=== PATIENT | female | born 1975 | race Hispanic/Latino ===

== ENCOUNTER 2021-02-14 11:03 | Inpatient (IN) | payer BC ==
[~2021-02-14] VITALS: Ht 13.2 cm; Wt 78.9 kg
[2021-02-14] MEDS: DEXTROSE 5%/0.45% SOD CHL 1,000 ML IV SCH ×2 (00:21→13:42)
[2021-02-14] MEDS ORDERED: HYDROMORPHONE 1MG/1ML INJ IV PRN (12:00)
[2021-02-14 12:39] VITALS: BP 109/66
[2021-02-14 12:41] VITALS: BP 109/66
[2021-02-14 12:43] LABS: BASOPHILS % 0.1 % (0.0-1.0); EOSINOPHILS % 0.2 % (0.0-6.0); HEMATOCRIT 41.1 % (34.2-44.1); LYMPHOCYTES # (AUTO) 2.5 (1.0-3.2); LYMPHOCYTES % 29.8 % (18.0-39.1); MEAN CORPUSCULAR HEMOGLOBIN 26.7 pg (28-32); MEAN CORPUSCULAR HGB CONC 31.6 g/dL (31-35); MEAN CORPUSCULAR VOLUME 84.6 fL (81-99); MONOCYTES # (AUTO) 0.3 (0.2-0.8); MONOCYTES % 3.7 % (4.4-11.3); NEUTROPHILS # (AUTO) 5.5 (2.1-6.9); PLATELET COUNT 407 x10e3/uL (140-360); RED BLOOD COUNT 4.86 x10e6/uL (3.6-5.1); RED CELL DISTRIBUTION WIDTH 15.8 % (11.7-14.4)
[2021-02-14 12:59] VITALS: BP 109/66
[2021-02-14 13:05] LABS: ALBUMIN 3.7 g/dL (3.5-5.0); ALBUMIN/GLOBULIN RATIO 0.9 (0.8-2.0); ANION GAP 16.6 mmol/L (8-16); CALCIUM 8.9 mg/dL (8.4-10.2); CREATININE, SERUM 0.75 mg/dL (0.57-1.11); POTASSIUM 3.6 mmol/L (3.5-5.1)
[2021-02-14] MEDS: METRONIDAZOLE 500MG/NS 100ML 100 ML IV SCH ×2 (13:42→20:29)
[2021-02-14] MEDS: PIPERACILLIN/TAZOBACTAM 3.375 GM in SODIUM CHLORIDE 0.9% 50ML 50 ML IV SCH ×2 (13:42→18:24)
[2021-02-14] MEDS: ONDANSETRON HCL INJ 2MG/ML 2ML 2 MG/ML VIAL IV PRN (13:43)
[2021-02-14] MEDS ORDERED: SEVOFLURANE INHAL SOLN 250 ML PEN BTL ONE (14:03)
[2021-02-14] MEDS ORDERED: ONDANSETRON HCL INJ 2MG/ML 2ML 2 MG/ML VIAL ONE (14:03)
[2021-02-14] MEDS ORDERED: DEXAMETHASONE SOD PHOS INJ 4 MG/ML VIAL ONE (14:03)
[2021-02-14] MEDS ORDERED: PROPOFOL IV EMULSION 10 MG/ML 20 ML VIAL ONE (14:03)
[2021-02-14] MEDS ORDERED: KETOROLAC TROMETHAMINE 30 MG/ML VIAL ONE (14:03)
[2021-02-14] MEDS ORDERED: POVIDONE IODINE 0.05% 0.05 % ML PO ONE (14:03)
[2021-02-14 15:32] VITALS: BP 131/76
[2021-02-14 20:00] VITALS: BP 138/85
[2021-02-14] MEDS: HYDROMORPHONE 1MG/1ML INJ IV PRN (21:31)
[2021-02-15] VITALS (11 sets, daily range): BP systolic 109–127; BP diastolic 70–96
[2021-02-15] MEDS: PIPERACILLIN/TAZOBACTAM 3.375 GM in SODIUM CHLORIDE 0.9% 50ML 50 ML IV SCH ×4 (00:52→18:23)
[2021-02-15] MEDS: HYDROMORPHONE 1MG/1ML INJ IV PRN ×5 (01:55→20:22)
[2021-02-15] MEDS: ONDANSETRON HCL INJ 2MG/ML 2ML 2 MG/ML VIAL IV PRN ×2 (01:55→08:54)
[2021-02-15] MEDS: METRONIDAZOLE 500MG/NS 100ML 100 ML IV SCH ×3 (05:09→21:13)
[2021-02-15] MEDS: DOCUSATE SODIUM LIQD 100 MG/10 ML UDC NG SCH (18:23)
[2021-02-16] VITALS (7 sets, daily range): BP systolic 101–136; BP diastolic 62–81
[2021-02-16] MEDS: PIPERACILLIN/TAZOBACTAM 3.375 GM in SODIUM CHLORIDE 0.9% 50ML 50 ML IV SCH ×4 (00:51→18:05)
[2021-02-16] MEDS: HYDROMORPHONE 1MG/1ML INJ IV PRN ×7 (00:51→21:18)
[2021-02-16] MEDS: METRONIDAZOLE 500MG/NS 100ML 100 ML IV SCH ×3 (05:44→21:18)
[2021-02-16] MEDS: DOCUSATE SODIUM LIQD 100 MG/10 ML UDC NG SCH ×2 (08:50→18:05)
[2021-02-16] MEDS: DEXTROSE 5%/0.45% SOD CHL 1,000 ML IV SCH ×3 (10:00→23:14)
[2021-02-16] MEDS: ONDANSETRON HCL INJ 2MG/ML 2ML 2 MG/ML VIAL IV PRN ×2 (12:12→21:18)
[2021-02-17] VITALS (8 sets, daily range): BP systolic 98–121; BP diastolic 60–81
[2021-02-17] MEDS: PIPERACILLIN/TAZOBACTAM 3.375 GM in SODIUM CHLORIDE 0.9% 50ML 50 ML IV SCH ×5 (00:10→23:50)
[2021-02-17] MEDS: HYDROMORPHONE 1MG/1ML INJ IV PRN ×8 (00:25→22:20)
[2021-02-17] MEDS: METRONIDAZOLE 500MG/NS 100ML 100 ML IV SCH ×3 (06:15→21:18)
[2021-02-17] MEDS ORDERED: DIATRIZOATE MEGL/DIATRIZOA SOD 120 ML BTL PO ONE (08:51)
[2021-02-17] MEDS: DOCUSATE SODIUM LIQD 100 MG/10 ML UDC NG SCH (09:00)
[2021-02-17] MEDS: DEXTROSE 5%/0.45% SOD CHL 1,000 ML IV SCH ×2 (09:57→19:58)
[2021-02-17] MEDS: KETOROLAC TROMETHAMINE 30 MG/ML VIAL IV SCH ×3 (11:40→23:50)
[2021-02-17] MEDS: DOCUSATE SODIUM 100 MG CAP PO SCH (17:00)
[2021-02-18] VITALS (8 sets, daily range): BP systolic 105–131; BP diastolic 65–82
[2021-02-18] MEDS: KETOROLAC TROMETHAMINE 30 MG/ML VIAL IV SCH ×3 (05:22→18:33)
[2021-02-18] MEDS: PIPERACILLIN/TAZOBACTAM 3.375 GM in SODIUM CHLORIDE 0.9% 50ML 50 ML IV SCH ×3 (05:22→18:00)
[2021-02-18] MEDS: METRONIDAZOLE 500MG/NS 100ML 100 ML IV SCH ×3 (06:00→21:39)
[2021-02-18] MEDS: ONDANSETRON HCL INJ 2MG/ML 2ML 2 MG/ML VIAL IV PRN ×2 (08:17→13:41)
[2021-02-18] MEDS: HYDROMORPHONE 1MG/1ML INJ IV PRN ×4 (08:17→21:38)
[2021-02-18] MEDS: GABAPENTIN 300 MG CAP PO SCH ×3 (08:29→20:44)
[2021-02-18] MEDS: DOCUSATE SODIUM 100 MG CAP PO SCH ×2 (08:29→16:36)
[2021-02-18] MEDS: DEXTROSE 5%/0.45% SOD CHL 1,000 ML IV SCH ×2 (08:30→16:20)
[2021-02-18] MEDS ORDERED: GADOBENATE DIMEGLUMINE 1 ML IV ONE (10:10)
[2021-02-19] VITALS (8 sets, daily range): BP systolic 118–134; BP diastolic 77–87
[2021-02-19] MEDS: DEXTROSE 5%/0.45% SOD CHL 1,000 ML IV SCH ×3 (04:59→18:23)
[2021-02-19] MEDS: METRONIDAZOLE 500MG/NS 100ML 100 ML IV SCH ×3 (05:00→22:44)
[2021-02-19] MEDS: KETOROLAC TROMETHAMINE 30 MG/ML VIAL IV SCH ×4 (05:50→18:22)
[2021-02-19] MEDS: PIPERACILLIN/TAZOBACTAM 3.375 GM in SODIUM CHLORIDE 0.9% 50ML 50 ML IV SCH ×5 (05:50→17:30)
[2021-02-19] MEDS: GABAPENTIN 300 MG CAP PO SCH ×3 (08:25→21:04)
[2021-02-19] MEDS: DOCUSATE SODIUM 100 MG CAP PO SCH ×2 (08:25→17:30)
[2021-02-19] MEDS: HYDROMORPHONE 1MG/1ML INJ IV PRN ×5 (08:25→21:00)
[2021-02-19] MEDS: HYDROCODONE/APAP 10MG-325MG TAB PO PRN (16:30)
[2021-02-20] VITALS (8 sets, daily range): BP systolic 106–141; BP diastolic 71–97
[2021-02-20] MEDS: PIPERACILLIN/TAZOBACTAM 3.375 GM in SODIUM CHLORIDE 0.9% 50ML 50 ML IV SCH ×5 (01:25→23:27)
[2021-02-20] MEDS: HYDROMORPHONE 1MG/1ML INJ IV PRN ×6 (03:30→22:43)
[2021-02-20] MEDS: METRONIDAZOLE 500MG/NS 100ML 100 ML IV SCH ×3 (06:00→21:34)
[2021-02-20] MEDS: KETOROLAC TROMETHAMINE 30 MG/ML VIAL IV SCH ×2 (06:00)
[2021-02-20] MEDS: DEXTROSE 5%/0.45% SOD CHL 1,000 ML IV SCH ×2 (06:18→18:00)
[2021-02-20] MEDS: GABAPENTIN 300 MG CAP PO SCH ×3 (09:00→20:26)
[2021-02-20] MEDS: DOCUSATE SODIUM 100 MG CAP PO SCH ×2 (09:00→17:27)
[2021-02-20 12:08] LABS: CLARITY,URINE CLEAR (CLEAR); COLOR,URINE YELLOW (YELLOW); KETONES,URINE NEGATIVE (NEGATIVE); LEUKOCYTE ESTERASE ,URINE NEGATIVE (NEGATIVE); NITRITE,URINE NEGATIVE (NEGATIVE); PROTEIN,URINE DIPSTICK NEGATIVE (NEGATIVE); URINE UROBILINOGEN 0.2 mg/dL (0.2 - 1)
[2021-02-20 12:25] LABS: RBC,URINE 0-5 /HPF (0-5); WBC,URINE (MAN) 0-5 /HPF (0-5)
[2021-02-20] MEDS: HYDROCODONE/APAP 10MG-325MG TAB PO PRN ×2 (13:49→20:26)
[2021-02-20] MEDS: ONDANSETRON HCL INJ 2MG/ML 2ML 2 MG/ML VIAL IV PRN (22:43)
[2021-02-21] VITALS (8 sets, daily range): BP systolic 115–139; BP diastolic 78–94
[2021-02-21] MEDS: HYDROCODONE/APAP 10MG-325MG TAB PO PRN ×3 (02:00→19:40)
[2021-02-21] MEDS: DEXTROSE 5%/0.45% SOD CHL 1,000 ML IV SCH ×2 (03:00→15:01)
[2021-02-21] MEDS: HYDROMORPHONE 1MG/1ML INJ IV PRN ×3 (03:45→21:53)
[2021-02-21] MEDS: PIPERACILLIN/TAZOBACTAM 3.375 GM in SODIUM CHLORIDE 0.9% 50ML 50 ML IV SCH ×3 (05:16→18:08)
[2021-02-21] MEDS: METRONIDAZOLE 500MG/NS 100ML 100 ML IV SCH (06:16)
[2021-02-21 07:27] LABS: HEMATOCRIT 37.2 % (34.2-44.1); HEMOGLOBIN 12.1 g/dL (12.0-16.0); MEAN CORPUSCULAR HEMOGLOBIN 26.7 pg (28-32); MEAN CORPUSCULAR HGB CONC 32.5 g/dL (31-35); MEAN CORPUSCULAR VOLUME 82.1 fL (81-99); PLATELET COUNT 347 x10e3/uL (140-360); RED BLOOD COUNT 4.53 x10e6/uL (3.6-5.1); RED CELL DISTRIBUTION WIDTH 15.3 % (11.7-14.4)
[2021-02-21 09:01] LABS: BAND NEUTROPHILS % (MANUAL) 1 %; LYMPHOCYTES % (MANUAL) 22 % (19-48); MONOCYTES % (MANUAL) 4 % (3.4-9.0); NEUTROPHILS % (MANUAL) 67 % (40-74)
[2021-02-21 09:02] LABS: PLATELET ESTIMATE ADEQUATE; PLATELET MORPHOLOGY COMMENT NORMAL; RBC MORPHOLOGY COMMENT NORMAL
[2021-02-21] MEDS ORDERED: IOPAMIDOL 370 MG/ML 200 ML INFUS..BTL INJ ONE (10:55)
[2021-02-21] MEDS ORDERED: SODIUM CHLORIDE 0.9% 50ML 50 ML ONE (10:55)
[2021-02-21] MEDS: DOCUSATE SODIUM 100 MG CAP PO SCH ×2 (11:09→18:07)
[2021-02-21] MEDS: GABAPENTIN 300 MG CAP PO SCH ×3 (11:09→21:51)
[2021-02-21] MEDS: Vancomycin IV 1 GM in SODIUM CHLORIDE 0.9% 250ML 250 ML IV SCH (15:00)
[2021-02-22] VITALS (8 sets, daily range): BP systolic 101–137; BP diastolic 70–77
[2021-02-22] MEDS ORDERED: ACETAMINOPHEN 325 MG TAB PO PRN (01:00)
[2021-02-22] MEDS ORDERED: ACETAMINOPHEN 325 MG TAB ONE (01:18)
[2021-02-22] MEDS: Vancomycin IV 1 GM in SODIUM CHLORIDE 0.9% 250ML 250 ML IV SCH ×2 (01:45→13:21)
[2021-02-22] MEDS: HYDROMORPHONE 1MG/1ML INJ IV PRN ×4 (01:47→12:08)
[2021-02-22] MEDS: ONDANSETRON HCL INJ 2MG/ML 2ML 2 MG/ML VIAL IV PRN (01:47)
[2021-02-22] MEDS: PIPERACILLIN/TAZOBACTAM 3.375 GM in SODIUM CHLORIDE 0.9% 50ML 50 ML IV SCH ×5 (06:43→18:40)
[2021-02-22] MEDS: DOCUSATE SODIUM 100 MG CAP PO SCH ×2 (09:00→18:40)
[2021-02-22] MEDS: GABAPENTIN 300 MG CAP PO SCH ×3 (09:00→20:58)
[2021-02-22] MEDS: DEXTROSE 5%/0.45% SOD CHL 1,000 ML IV SCH ×2 (10:00)
[2021-02-22] MEDS ORDERED: LIDOCAINE 1% W/EPINEPHRINE 20 ML VIAL ONE (13:21)
[2021-02-22] MEDS ORDERED: LIDOCAINE HCL 1% LOCAL INJ 20 ML VIAL ONE (13:21)
[2021-02-22] MEDS ORDERED: ONDANSETRON HCL INJ 2MG/ML 2ML 2 MG/ML VIAL IV PRN (14:15)
[2021-02-22] MEDS: SODIUM CHLORIDE 0.9% 1000ML 1,000 ML IV SCH (16:54)
[2021-02-23] VITALS (10 sets, daily range): BP systolic 107–141; BP diastolic 69–85
[2021-02-23] MEDS: SODIUM CHLORIDE 0.9% 1000ML 1,000 ML IV SCH ×3 (00:15→22:42)
[2021-02-23] MEDS: HYDROMORPHONE 1MG/1ML INJ IV PRN ×5 (01:55→20:10)
[2021-02-23] MEDS: Vancomycin IV 1 GM in SODIUM CHLORIDE 0.9% 250ML 250 ML IV SCH (01:55)
[2021-02-23] MEDS: PIPERACILLIN/TAZOBACTAM 3.375 GM in SODIUM CHLORIDE 0.9% 50ML 50 ML IV SCH ×5 (05:58→18:05)
[2021-02-23 06:25] LABS: BASOPHILS % 0.1 % (0.0-1.0); HEMATOCRIT 34.1 % (34.2-44.1); HEMOGLOBIN 11.2 g/dL (12.0-16.0); LYMPHOCYTES # (AUTO) 1.9 (1.0-3.2); LYMPHOCYTES % 12.4 % (18.0-39.1); MEAN CORPUSCULAR HEMOGLOBIN 26.9 pg (28-32); MEAN CORPUSCULAR HGB CONC 32.8 g/dL (31-35); MEAN CORPUSCULAR VOLUME 81.8 fL (81-99); MONOCYTES % 6.5 % (4.4-11.3); NEUTROPHILS # (AUTO) 12.2 (2.1-6.9); NEUTROPHILS % 80.4 % (38.7-80.0); PLATELET COUNT 411 x10e3/uL (140-360); RED BLOOD COUNT 4.17 x10e6/uL (3.6-5.1); RED CELL DISTRIBUTION WIDTH 15.3 % (11.7-14.4)
[2021-02-23] MEDS: FLUCONAZOLE 400MG/200ML BAG 200 ML IV SCH (06:41)
[2021-02-23] MEDS ORDERED: Vancomycin IV 1 GM VIAL ONE (09:09)
[2021-02-23] MEDS: DOCUSATE SODIUM 100 MG CAP PO SCH ×2 (09:30→16:23)
[2021-02-23] MEDS: GABAPENTIN 300 MG CAP PO SCH ×3 (09:30→20:10)
[2021-02-23] MEDS: HYDROCODONE/APAP 10MG-325MG TAB PO PRN ×4 (09:31→22:42)
[2021-02-23] MEDS: Vancomycin IV 1.5 GM in SODIUM CHLORIDE 0.9% 250ML 300 ML IV SCH (13:39)
[2021-02-24] VITALS: BP 113/84
[2021-02-24] MEDS: Vancomycin IV 1.5 GM in SODIUM CHLORIDE 0.9% 250ML 300 ML IV SCH ×2 (01:30→13:42)
[2021-02-24] MEDS: HYDROMORPHONE 1MG/1ML INJ IV PRN ×5 (03:15→20:07)
[2021-02-24 04:00] VITALS: BP 112/77
[2021-02-24 04:44] LABS: HEMATOCRIT 30.4 % (34.2-44.1); HEMOGLOBIN 9.9 g/dL (12.0-16.0); MEAN CORPUSCULAR HGB CONC 32.6 g/dL (31-35); MEAN CORPUSCULAR VOLUME 82.8 fL (81-99); PLATELET COUNT 378 x10e3/uL (140-360); RED BLOOD COUNT 3.67 x10e6/uL (3.6-5.1); RED CELL DISTRIBUTION WIDTH 15.7 % (11.7-14.4)
[2021-02-24] MEDS: PIPERACILLIN/TAZOBACTAM 3.375 GM in SODIUM CHLORIDE 0.9% 50ML 50 ML IV SCH ×3 (05:30)
[2021-02-24] MEDS: SODIUM CHLORIDE 0.9% 1000ML 1,000 ML IV SCH ×2 (06:15→16:01)
[2021-02-24] MEDS: FLUCONAZOLE 400MG/200ML BAG 200 ML IV SCH (06:26)
[2021-02-24 06:48] LABS: LYMPHOCYTES % (MANUAL) 29 % (19-48); MONOCYTES % (MANUAL) 4 % (3.4-9.0); NEUTROPHILS % (MANUAL) 64 % (40-74); PLATELET ESTIMATE ADEQUATE; PLATELET MORPHOLOGY COMMENT NORMAL; RBC MORPHOLOGY COMMENT NORMAL
[2021-02-24 08:13] VITALS: BP 115/85
[2021-02-24] MEDS: DOCUSATE SODIUM 100 MG CAP PO SCH ×2 (09:00→16:02)
[2021-02-24] MEDS: GABAPENTIN 300 MG CAP PO SCH ×3 (09:41→20:07)
[2021-02-24 11:55] VITALS: BP 129/74
[2021-02-24 20:07] VITALS: BP 130/81
[2021-02-24 20:15] VITALS: BP 130/81
[2021-02-24] MEDS: HYDROCODONE/APAP 10MG-325MG TAB PO PRN (22:59)
[2021-02-25] VITALS (11 sets, daily range): BP systolic 117–144; BP diastolic 70–88
[2021-02-25] MEDS: Vancomycin IV 1.5 GM in SODIUM CHLORIDE 0.9% 250ML 300 ML IV SCH ×2 (02:06→13:30)
[2021-02-25] MEDS: SODIUM CHLORIDE 0.9% 1000ML 1,000 ML IV SCH ×2 (04:03→13:07)
[2021-02-25] MEDS: HYDROMORPHONE 1MG/1ML INJ IV PRN ×5 (04:04→22:09)
[2021-02-25] MEDS: FLUCONAZOLE 400MG/200ML BAG 200 ML IV SCH (05:54)
[2021-02-25] MEDS: GABAPENTIN 300 MG CAP PO SCH ×3 (08:51→21:27)
[2021-02-25] MEDS: DOCUSATE SODIUM 100 MG CAP PO SCH ×2 (08:51→15:06)
[2021-02-25] MEDS: HYDROCODONE/APAP 10MG-325MG TAB PO PRN ×3 (09:00→23:20)
[2021-02-26] VITALS (8 sets, daily range): BP systolic 130–140; BP diastolic 78–89
[2021-02-26] MEDS: SODIUM CHLORIDE 0.9% 1000ML 1,000 ML IV SCH ×3 (01:15→16:54)
[2021-02-26] MEDS: Vancomycin IV 1.5 GM in SODIUM CHLORIDE 0.9% 250ML 300 ML IV SCH ×2 (01:30→21:25)
[2021-02-26] MEDS: HYDROMORPHONE 1MG/1ML INJ IV PRN ×4 (01:47→18:32)
[2021-02-26] MEDS: HYDROCODONE/APAP 10MG-325MG TAB PO PRN ×2 (04:15→09:44)
[2021-02-26] MEDS: FLUCONAZOLE 400MG/200ML BAG 200 ML IV SCH (05:29)
[2021-02-26] MEDS: DOCUSATE SODIUM 100 MG CAP PO SCH ×2 (09:00→16:31)
[2021-02-26] MEDS: GABAPENTIN 300 MG CAP PO SCH ×3 (09:43→21:25)
[2021-02-27] VITALS (8 sets, daily range): BP systolic 122–148; BP diastolic 73–92
[2021-02-27] MEDS: SODIUM CHLORIDE 0.9% 1000ML 1,000 ML IV SCH ×2 (03:59→14:53)
[2021-02-27] MEDS: HYDROMORPHONE 1MG/1ML INJ IV PRN ×6 (03:59→22:10)
[2021-02-27] MEDS: HYDROCODONE/APAP 10MG-325MG TAB PO PRN ×2 (09:11→16:50)
[2021-02-27] MEDS: Vancomycin IV 1.5 GM in SODIUM CHLORIDE 0.9% 250ML 300 ML IV SCH ×2 (09:25→22:31)
[2021-02-27] MEDS: DOCUSATE SODIUM 100 MG CAP PO SCH ×2 (09:25→17:01)
[2021-02-27] MEDS: GABAPENTIN 300 MG CAP PO SCH ×3 (09:25→22:31)
[2021-02-27] MEDS ORDERED: FLUCONAZOLE 400MG/200ML BAG 200 ML IV SCH (13:00)
[2021-02-28 00:13] VITALS: BP 140/71
[2021-02-28] MEDS: SODIUM CHLORIDE 0.9% 1000ML 1,000 ML IV SCH (03:46)
[2021-02-28] MEDS: HYDROMORPHONE 1MG/1ML INJ IV PRN ×3 (03:47→05:42)
[2021-02-28 05:04] VITALS: BP 153/90
[2021-02-28] MEDS ORDERED: HYDROCODON-ACE1 EAC9 PO (06:49)
[2021-02-28] MEDS ORDERED: DIFLUCAN100 MG PO (06:49)
[2021-02-28] MEDS: DOCUSATE SODIUM 100 MG CAP PO SCH (08:00)
[2021-02-28] MEDS: GABAPENTIN 300 MG CAP PO SCH (08:00)
== END 2021-02-28 08:55 | disposition home or self-care (01) | DRG 580 ==
LOC: MED/SURG2 11:48
PROVIDERS: ADMIT Surgery; ATTEND Surgery
PROC: 0W9F00Z Drainage of Abdominal Wall with Drainage Device, Open Approach (ICD-10-PCS; principal; 2021-02-22 12:30)
DX: L02.211 Cutaneous abscess of abdominal wall (principal); K63.2 Fistula of intestine; B37.89 Other sites of candidiasis; Z20.822 Contact with and (suspected) exposure to COVID-19
CPT/HCPCS: 36415; 72158; 74177; 74270; 76830; 76856; 80053; 80202; 81001; 85007; 85025; 85027; 87071; 87075; 87205; 96360; 96361; J1100; J1170; J1450; J1885; J2001; J2405; J2543; J3370; J7030; J7050; Q9963; Q9967; U0002